=== PATIENT | female | born 1965 | race Caucasian/White ===

== ENCOUNTER 2016-04-09 10:13 | Emergency (ER) | payer OTHER ==
[~2016-04-09] VITALS: Ht 157.5 cm; Wt 78.0 kg
[2016-04-09 10:16] VITALS: Ht 157.5 cm; Wt 78.0 kg
--- NOTE | 2016-04-09 10:57 | ERD ---
ER Documentation Chief Complaint Date/Time DATE: 04/09/16 TIME: 10:54 Chief Complaint post nasal darinage, stuffy nose, eye irritation, on zyrtec already HPI This is a 51-year-old female that presents to the ER with multiple complaints. Patient states that yesterday she developed a runny nose and was sneezing a lot. Patient believed it was allergies and she tried Zyrtec. Zyrtec helped a little bit however this morning patient woke up with a dry cough and with bilateral yellow eye discharge. Her eyes were stuck together. She does complain of red eyes bilaterally. Patient denies any chest pain shortness of breath. Patient is additionally complaining of lower back pain. Last week patient was going downstairs when she slipped, however she caught herself. Patient states that she put a lot of weight on her left leg and the left side of her back to catch her balance and since then she has had left-sided lower back pain that radiates down her left leg. Patient denies any hip pain, any ankle pain. Pain is described as a strain and has been getting better with rest. Patient denies any numbness or tingling of her lower extremity. She denies any urinary or bowel incontinence. ROS 12 point review of systems was done, all negative except per HPI. Medications Home Meds Active Scripts Ibuprofen* (Motrin*) 600 Mg Tab, 600 MG PO Q6, #30 TAB Prov:JEANMARIE GALINDO 04/09/16 Dextromethorphan Hb-Promethazine Hcl (Promethazine DM Syrup) 473 Ml Syrup, 10 ML PO Q6H Y for COUGH, #4 OZ Prov:JEANMARIE GALINDO 04/09/16 Polymyxin B Sulfate-TMP* (Polymyxin B-TMP Eye Drops*) 10 Ml Drops, 1 DROP BOTH EYES Q3H for 7 Days, EA Prov:JEANMARIE GALINDO 04/09/16 Allergies Allergies: Coded Allergies: No Known Allergy (Unverified , 04/09/16) PMhx/Soc Hx Alcohol Use: No Hx Substance Use: No Hx Tobacco Use: No Physical Exam Vitals Vital Signs Date Time Temp Pulse Resp B/P Pulse Ox O2 Delivery O2 Flow Rate FiO2 04/09/16 10:16 98.1 85 18 140/70 99 Physical Exam GENERAL: The patient is well-developed, well-nourished, in no acute distress. NECK: Cervical spine is non tender with no step off. Supple, no nuchal rigidity HEENT: Atraumatic. Pupils equal, round and reactive to light. Extraocular muscles are grossly intact. Injected left conjunctiva. Discharge seen bilaterally. No surrounding erythema or edema of the eyes. Nonpainful extraocular movements bilateral tympanic membranes are clear with no evidence of erythema, effusion or dulling of the light reflex. Tonsilar erythema with no exudates or uvular deviation. Clear rhinorrhea. RESPIRATORY: Clear to auscultation bilaterally. There are no rales, wheezes or rhonchi. HEART: Regular rate and rhythm. No murmurs, clicks, rubs or gallops. EXTREMITIES: Patient is tender to palpation to the left paraspinal muscles near the lumbar spine. There is no vertebral point tenderness. Patient has full range of motion of her back. Negative straight leg test. No hip pain, knee pain. Worsening. +2 pulses. NEUROLOGIC: Alert and oriented. SKIN: There is no rash. The skin is warm and dry. Procedures/MDM This is a 51-year-old female that presents to the ER with multiple complaints in regards to patient's upper respiratory infection symptoms this is likely viral in etiology. Patient will be given Polytrim for possible bacterial conjunctivitis, as she does have yellow discharge and injection of her eyes. In regards to patient's back pain this is likely back strain. Patient is neurovascularly intact and is ambulating without any difficulty. Her x-rays were negative for any fracture dislocation. Patient has denied any hip pain or knee pain. She will be sent home with Phenergan and with ibuprofen. Patient needs to follow-up with her primary care doctor within 1-2 days I shared my medical decision making with the patient patient understands and agrees with plan. Departure Diagnosis: Primary Impression: Upper respiratory infection Additional Impression: Back strain Condition: Stable JEANMARIE GALINDO Apr 09, 2016 10:57
--- NOTE | 2016-04-09 11:43 | RADRPT ---
PROCEDURE: XR Lumbar Spine. CLINICAL INDICATION: Trauma due to a fall. Back pain. TECHNIQUE: Three views. AP, lateral and cone-down lateral view of the lumbar spine were obtained. COMPARISON: No prior studies are available for comparison. FINDINGS: There is normal stature and alignment of the vertebrae. There is no fracture. There is no lytic or blastic lesion. The disk height is normal. There are small osteophytes throughout. The paravertebral soft tissues are unremarkable. IMPRESSION: 1. Mild degenerative change. 2. Otherwise normal images of the lumbar spine. RPTAT: QQ .Rigoberto Miranda MD, MD Date Time Electronically viewed and signed by .Rigoberto Miranda MD, MD on 04/09/2016 11:42 .R/
[2016-04-09] MEDS ORDERED: POLY10DR19 BOTH EYES (11:52)
[2016-04-09] MEDS ORDERED: IBUP-1542 PO (11:53)
[2016-04-09] MEDS ORDERED: D-ME473S18 PO (11:53)
== END 2016-04-09 12:22 | disposition home or self-care (01) ==
LOC: FTE 10:13
DX: J06.9 Acute upper respiratory infection, unspecified (principal); S29.012A Strain of muscle and tendon of back wall of thorax, initial encounter; W18.40XA Slipping, tripping and stumbling without falling, unspecified, initial encounter; Y92.9 Unspecified place or not applicable
CPT/HCPCS: 72100; Z7502

== ENCOUNTER 2016-06-15 12:50 | Emergency (ER) | payer OTHER ==
[~2016-06-15] VITALS: Ht 157.5 cm; Wt 67.1 kg
[~2016-06-15 12:50] MED LIST: D-ME473S18 PO; IBUP-1542 PO; POLY10DR19 BOTH EYES
[2016-06-15 13:00] VITALS: Ht 157.5 cm; Wt 67.1 kg
[2016-06-15] MEDS ORDERED: AZIT250T94 PO (14:27)
[2016-06-15] MEDS ORDERED: PSEU120T11 PO (14:27)
[2016-06-15] MEDS ORDERED: CETI10CA PO (14:28)
[2016-06-15] MEDS ORDERED: FLUT9.9S NASAL (14:28)
--- NOTE | 2016-06-15 14:43 | ERD ---
ER Documentation Chief Complaint Date/Time DATE: 06/15/16 TIME: 14:[address] x 3 days HPI This is a 51-year-old female that presents to the ER with sore throat for the last 3 days. Patient states that sore throat feels as if she has tinnitus in her throat. She is also complaining of nasal congestion, runny nose and postnasal drip. Patient denies any fevers or chills. She does admit to a cough. Patient states that her sore there is getting significantly worse. There are no sick contacts at home. ROS 12 point review of systems was done, all negative except per HPI. Medications Home Meds Active Scripts Fluticasone Propionate (Flonase Allergy Relief) 9.9 Ml [place].susp, 1 SPRAY NASAL BID, #1 BOTTLE TO EACH NOSTRIL Prov:JOSIEMARCIAJEANMARIE C 06/15/16 Cetirizine Hcl* (Zyrtec*) 10 Mg Capsule, 10 MG PO DAILY, #10 TAB.CHEW Prov:JEANMARIE GALINDO 06/15/16 Pseudoephedrine Hcl (Sudafe 12-Hour) 120 Mg Tablet.er, 120 MG PO BID Y for CONGESTION for 30 Days, TAB.SA Prov:MARCIA GALINDODOROTHY aBll 06/15/16 Azithromycin* (Zithromax*) 250 Mg Tablet, 250 MG PO .ZPACK DIRECTED, #6 TAB TAKE 500 MG (2 TABS) THE FIRST DAY THEN 250 MG (1 TAB) DAYS 2-5 Prov:JOSIEJEANMARIE Ball 06/15/16 Ibuprofen* (Motrin*) 600 Mg Tab, 600 MG PO Q6, #30 TAB Prov:JEANMARIE GALINDO 04/09/16 Dextromethorphan Hb-Promethazine Hcl (Promethazine DM Syrup) 473 Ml Syrup, 10 ML PO Q6H Y for COUGH, #4 OZ Prov:JOSIEJEANMARIE Ball 04/09/16 Polymyxin B Sulfate-TMP* (Polymyxin B-TMP Eye Drops*) 10 Ml Drops, 1 DROP BOTH EYES Q3H for 7 Days, EA Prov:JOSIEMARCIAJEANMARIE C 04/09/16 Allergies Allergies: Coded Allergies: No Known Allergy (Unverified , 04/09/16) PMhx/Soc Hx Alcohol Use: No Hx Substance Use: No Hx Tobacco Use: No Physical Exam Vitals Vital Signs Date Time Temp Pulse Resp B/P Pulse Ox O2 Delivery O2 Flow Rate FiO2 06/15/16 13:00 98.1 78 20 123/77 99 Physical Exam GENERAL: The patient is well-developed, well-nourished, in no acute distress. NECK: Cervical spine is non tender with no step off. Supple, no nuchal rigidity HEENT: Atraumatic. Pupils equal, round and reactive to light. Extraocular muscles are grossly intact. Conjunctivae pink, no discharge. Bilateral tympanic membranes are clear with no evidence of erythema, effusion or dulling of the light reflex. Tonsilar erythema with no exudates or uvular deviation. Clear rhinorrhea. RESPIRATORY: Clear to auscultation bilaterally. There are no rales, wheezes or rhonchi. HEART: Regular rate and rhythm. No murmurs, clicks, rubs or gallops. EXTREMITIES: No clubbing or cyanosis. Full range of motion. Grossly neurovascularly intact. NEUROLOGIC: Alert and oriented. Cranial nerves II through XII are intact. SKIN: There is no rash. The skin is warm and dry. Procedures/MDM Differential diagnosis includes but is not limited to; Viral URI, allergic rhinitis, bronchitis, pertussis,pneumonia. Patient likely has an upper respiratory infection, because of patient's severity of symptoms she'll be treated with azithromycin. She'll also be treated for possible allergic rhinitis. Clinical suspicion for pneumonia is low as patient appears well, is not hypoxic or in any respiratory distress. Additionally, patients physical examination is benign. Plan was discussed with patient they understand and agree. Patient needs to follow up with PCP in 1-2 days or return to ER sooner if symptoms worsen. Departure Diagnosis: Primary Impression: Upper respiratory infection Condition: Stable Patient Instructions: Preventing Common Respiratory Infections Additional Instructions: Call your primary care doctor TOMORROW for an appointment during the next 1-2 days.See the doctor sooner or return here if your condition worsens before your appointment time. JEANMARIE GALINDO Jun 15, 2016 14:43
== END 2016-06-15 14:30 | disposition home or self-care (01) ==
LOC: E/R 12:50
DX: J06.9 Acute upper respiratory infection, unspecified (principal)
CPT/HCPCS: 99283

== ENCOUNTER 2016-09-20 12:21 | Emergency (ER) | payer OTHER ==
[~2016-09-20] VITALS: Wt 70.0 kg
[~2016-09-20 12:21] MED LIST changes: +AZIT250T94 PO; +CETI10CA PO; +FLUT9.9S NASAL; +PSEU120T11 PO
[2016-09-20] MEDS ORDERED: KETOROLAC 30 MG INJ IM STA (12:52)
--- NOTE | 2016-09-20 13:49 | RADRPT ---
PROCEDURE: XR Cervical Spine. CLINICAL INDICATION: Neck pain TECHNIQUE: 3 views of the cervical spine were performed. [facility] COMPARISON: None. FINDINGS: The vertebral body alignment, height and osseous mineralization are normal. There is preservation of the normal cervical lordosis. There is mild facet arthropathy in the lower cervical spine. The unc overtebral joints are unremarkable. The intervertebral disc spaces are well maintained. There are no abnormal calcifications. The prevertebral soft tissues are normal. No radiopaque foreign bodies are identified. IMPRESSION: 1. No acute fracture or traumatic malalignment. 2. Mild facet arthropathy in the lower cervical spine. RPTAT: HHO .Domenico Hurst MD, MD Date Time Electronically viewed and signed by .Domenico Hurst MD, on 09/20/2016 13:49 .O/
--- NOTE | 2016-09-20 14:15 | ERD ---
ER Documentation Chief Complaint Date/Time DATE: 09/20/16 TIME: 14:12 Chief Complaint RIGHT SHOULDER/NECK PAIN X12 DAYS, NO INJURY HPI This a 51 .-year-old female who presents the emergency department today complaining of neck pain for the past 2 weeks. States that the pain is going down into both of her shoulders. States she took ibuprofen last night. Denies any trauma. Denies any fevers or chills. ROS All systems reviewed and are negative except as per history of present illness. Medications Home Meds Active Scripts Acetaminophen* (Tylophen*) 500 Mg Capsule, 1 CAP PO Q6H Y for PAIN AND OR ELEVATED TEMP, #30 CAP Prov:CONSUELO PARTIDA PA-C 09/20/16 Tramadol HCl (Tramadol HCl) 50 Mg Tablet, 50 MG PO Q4 Y for PAIN, #20 TAB Prov:CONSUELO PARTIDA PA-C 09/20/16 Naproxen* (Naprosyn*) 500 Mg Tablet, 500 MG PO BID Y for PAIN AND/OR INFLAMMATION, #30 TAB Prov:CONSUELO PARTIDA PA-C 09/20/16 Fluticasone Propionate (Flonase Allergy Relief) 9.9 Ml [place].susp, 1 SPRAY NASAL BID, #1 BOTTLE TO EACH NOSTRIL Prov:JEANMARIE GALINDO 06/15/16 Cetirizine Hcl* (Zyrtec*) 10 Mg Capsule, 10 MG PO DAILY, #10 TAB.CHEW Prov:JEANMARIE GALINDO 06/15/16 Pseudoephedrine Hcl (Sudafe 12-Hour) 120 Mg Tablet.er, 120 MG PO BID Y for CONGESTION for 30 Days, TAB.SA Prov:JEANMARIE GALINDO 06/15/16 Azithromycin* (Zithromax*) 250 Mg Tablet, 250 MG PO .ZPACK DIRECTED, #6 TAB TAKE 500 MG (2 TABS) THE FIRST DAY THEN 250 MG (1 TAB) DAYS 2-5 Prov:JEANMARIE GALINDO 06/15/16 Ibuprofen* (Motrin*) 600 Mg Tab, 600 MG PO Q6, #30 TAB Prov:JEANMARIE GALINDO 04/09/16 Dextromethorphan Hb-Promethazine Hcl (Promethazine DM Syrup) 473 Ml Syrup, 10 ML PO Q6H Y for COUGH, #4 OZ Prov:JEANMARIE GALINDO 04/09/16 Polymyxin B Sulfate-TMP* (Polymyxin B-TMP Eye Drops*) 10 Ml Drops, 1 DROP BOTH EYES Q3H for 7 Days, EA Prov:JEANMARIE GALINDO 04/09/16 Allergies Allergies: Coded Allergies: No Known Allergy (Unverified , 04/09/16) PMhx/Soc Hx Alcohol Use: No Hx Substance Use: No Hx Tobacco Use: No Physical Exam Vitals Vital Signs Date Time Temp Pulse Resp B/P Pulse Ox O2 Delivery O2 Flow Rate FiO2 09/20/16 12:27 98.0 92 17 145/68 98 Physical Exam Const: No acute distress Head: Atraumatic Eyes: Normal Conjunctiva ENT: Normal External Ears, Nose and Mouth. Neck: Full range of motion..~ No meningismus. Midline tenderness and bilateral paraspinal tenderness. Resp: Clear to auscultation bilaterally Cardio: Regular rate and rhythm, no murmurs Abd: Soft, non tender, non distended. Normal bowel sounds Skin: No petechiae or rashes Back: No midline or flank tenderness Ext: No cyanosis, or edema. Bilateral arms with full active range of motion. Strength 5 out of 5. Pulses 2+. Distal neurovascularly intact Neur: Awake and alert Psych: Normal Mood and Affect Results 24 hrs Current Medications Medications (Trade) Dose Ordered Sig/Ann Route PRN Reason Start Time Stop Time Status Last Admin Dose Admin Ketorolac Tromethamine (Toradol) 30 mg ONCE STAT IM 09/20/16 12:52 09/20/16 12:54 DC 09/20/16 13:39 DIAGNOSTIC IMAGING REPORT Patient: JOURDAN MENDEZ : 1965 Age: 51 Sex: F MR #: [id number] DOS: 09/20/16 0000 Ordering MD: CONSUELO PARTIDA PA-C Location: [facility] Room/Bed: PROCEDURE: XR Cervical Spine. CLINICAL INDICATION: Neck pain TECHNIQUE: 3 views of the cervical spine were performed. The images were reviewed on a PACS workstation. COMPARISON: None. FINDINGS: The vertebral body alignment, height and osseous mineralization are normal. There is preservation of the normal cervical lordosis. There is mild facet arthropathy in the lower cervical spine. The uncovertebral joints are unremarkable. The intervertebral disc spaces are well maintained. There are no abnormal calcifications. The prevertebral soft tissues are normal. No radiopaque foreign bodies are identified. IMPRESSION: 1. No acute fracture or traumatic malalignment. 2. Mild facet arthropathy in the lower cervical spine. RPTAT: HHO .Domenico Hurst MD, Date Time Electronically viewed and signed by .Domenico Hurst MD, on 09/20/2016 13:49 .O/ CC: CONSUELO PARTIDA PA-C Procedures/[facility] This 51-year-old female who presents to the emergency department today complaining of neck pain that goes down into both of her shoulders. Patient has not had any trauma however she is complaining of radicular symptoms and therefore I did obtain cervical spine films Per the radiology report images of the cervical spine show no acute fracture or traumatic malalignment. There is mild facet arthropathy and lower cervical spine. Intervertebral discs are well maintained. Patient's arthropathy may be be the source of the pain is appears that her pain is somewhat chronic. Low suspicion for meningitis, sepsis, acute fracture dislocation. Patient was given Toradol here in the emergency department. I will give her prescription for short course of tramadol for home as well as Naprosyn and Tylenol At this time the patient is stable for discharge and outpatient management. Patient should follow up with their PCP in the next 1-2 days. They may return to the emergency department sooner for any persistent or worsening of symptoms. Patient understood and agreed with the plan. Departure Diagnosis: Primary Impression: Neck pain Condition: Fair CONSUELO PARTIDA PA-C Sep 20, 2016 14:15
[2016-09-20] MEDS ORDERED: NAPR-260 PO (14:16)
[2016-09-20] MEDS ORDERED: ACET500C5 PO (14:17)
[2016-09-20] MEDS ORDERED: TRAM50TA2 PO (14:17)
== END 2016-09-20 14:43 | disposition home or self-care (01) ==
LOC: FTE 12:21
DX: M54.2 Cervicalgia (principal)
CPT/HCPCS: 72040; 96372; J1885; Z7502

== ENCOUNTER 2016-09-21 06:08 | Emergency (ER) | payer OTHER ==
[~2016-09-21] VITALS: Ht 162.6 cm; Wt 70.0 kg
[~2016-09-21 06:08] MED LIST changes: +ACET500C5 PO; +NAPR-260 PO; +TRAM50TA2 PO
[2016-09-21 06:12] VITALS: Ht 162.6 cm; Wt 70.0 kg
--- NOTE | 2016-09-21 06:49 | ERD ---
ER Documentation Chief Complaint Date/Time DATE: 09/21/16 Chief Complaint Neck pain, right arm pain HPI The patient is a 51-[facility] of neck pain radiating down the right lower extremity. The patient reports that approximately 2 weeks ago she developed neck pain, worse on the right side. Over the past 2 days, she has noted increased radiation of pain down to the upper extremities, moreso on the right side. The pain extends just distal to the right elbow, and associated with mild paresthesias. She denies any numbness or weakness of the extremity. Denies restricted range of motion. Denies fevers, sweats, chills, nausea or vomiting. Denies chest pain, palpitations or shortness of breath. Denies any difficulty with ambulation, lower extremity or trunk symptoms, bowel or bladder disturbances, urinary retention. Denies any unexplained weight loss or hemoptysis. Denies any history of cancer, immunocompromise illness, or IV drug use. Denies any recent falls, injury or trauma preceding the symptoms. She rates her current pain as 10 out of 10, but notes that she has not yet taken any medication today for pain relief. The patient states that due to the symptoms she was initially seen in the emergency department yesterday, which time she received an x-ray the cervical spine which revealed mild facet arthropathy in the lower cervical spine , but otherwise no acute fracture or traumatic malalignment. The patient was discharged home with prescriptions for tramadol, naproxen and Tylenol, though she notes that she has not taken any of these medications today. She did take a dose of tramadol last night, with moderate improvement in symptoms. She has not yet seen her primary medical provider, but has an appointment to be seen tomorrow. Denies any change in symptoms from her presentation yesterday. No other complaints today. ROS All systems reviewed and are negative except as per history of present illness. Medications Home Meds Active Scripts Acetaminophen* (Tylophen*) 500 Mg Capsule, 1 CAP PO Q6H Y for PAIN AND OR ELEVATED TEMP, #30 CAP Prov:CONSUELO PARTIDA PA-C 09/20/16 Tramadol HCl (Tramadol HCl) 50 Mg Tablet, 50 MG PO Q4 Y for PAIN, #20 TAB Prov:CONSUELO PARTIDA PA-C 09/20/16 Naproxen* (Naprosyn*) 500 Mg Tablet, 500 MG PO BID Y for PAIN AND/OR INFLAMMATION, #30 TAB Prov:CONSUELO PARTIDA PA-C 09/20/16 Fluticasone Propionate (Flonase Allergy Relief) 9.9 Ml [place].susp, 1 SPRAY NASAL BID, #1 BOTTLE TO EACH NOSTRIL Prov:JEANMARIE GALINDO 06/15/16 Cetirizine Hcl* (Zyrtec*) 10 Mg Capsule, 10 MG PO DAILY, #10 TAB.CHEW Prov:JEANMARIE GALINDO 06/15/16 Pseudoephedrine Hcl (Sudafe 12-Hour) 120 Mg Tablet.er, 120 MG PO BID Y for CONGESTION for 30 Days, TAB.SA Prov:JEANMARIE GALINDO 06/15/16 Azithromycin* (Zithromax*) 250 Mg Tablet, 250 MG PO .ZPACK DIRECTED, #6 TAB TAKE 500 MG (2 TABS) THE FIRST DAY THEN 250 MG (1 TAB) DAYS 2-5 Prov:JEANMARIE GALINDO Lizzy 06/15/16 Ibuprofen* (Motrin*) 600 Mg Tab, 600 MG PO Q6, #30 TAB Prov:JEANMARIE GALINDO 04/09/16 Dextromethorphan Hb-Promethazine Hcl (Promethazine DM Syrup) 473 Ml Syrup, 10 ML PO Q6H Y for COUGH, #4 OZ Prov:JEANMARIE GALINDO 04/09/16 Polymyxin B Sulfate-TMP* (Polymyxin B-TMP Eye Drops*) 10 Ml Drops, 1 DROP BOTH EYES Q3H for 7 Days, EA Prov:JEANMARIE GALINDO Lizzy 04/09/16 Allergies Allergies: Coded Allergies: No Known Allergy (Unverified , 09/21/16) PMhx/Soc Hx Alcohol Use: No Hx Substance Use: No Hx Tobacco Use: No Smoking Status: Never smoker Physical Exam Vitals Vital Signs Date Time Temp Pulse Resp B/P Pulse Ox O2 Delivery O2 Flow Rate FiO2 09/21/16 06:12 97.8 80 20 122/85 97 Physical Exam GENERAL: Well-developed, well-nourished, female, in no acute distress. Nontoxic. HEENT: Head is normocephalic, atraumatic. No scleral pallor or icterus. Pupils equal, round and reactive to light. Extraocular movements intact. Conjunctiva pink. Moist mucous membranes. NECK: Supple. Bilateral paraspinal muscle tenderness, greater on the right side with mild palpable spasm noted, extending towards the right trapezius muscle. Positive Spurling maneuver on the right side. No crepitus. No erythema. No swelling. No posterior midline cervical tenderness. Normal range of motion. No masses. No nuchal rigidity. No meningismus. Trachea is midline. RESPIRATORY: Lungs are clear to auscultation bilaterally. Equal breath sounds. Normal expiratory effort. CARDIOVASCULAR: Regular rate and rhythm. S1 and S2 normal. GASTROINTESTINAL: Soft. Nontender. Nondistended. BACK: No midline tenderness. EXTREMITIES: No clubbing, cyanosis, or edema. Normal skin perfusion. Moving all extremities. Muscle tone is normal. No focal swelling or erythema. Negative drop arm test. Negative Neer sign. Negative [place] test. No crepitus. Distal pulses are palpable, 2+ bilaterally. Capillary refill is less than 2 seconds. Compartments are soft. NEUROLOGIC: The patient is alert, awake, and oriented x 3. No focal neurologic deficits. Motor and sensation grossly intact. INTEGUMENT: Skin is intact. Warm and dry. No rashes, no petechiae present. Normal turgor. PSYCHIATRIC: Cooperative. Appropriate. Results 24 hrs Current Medications Medications (Trade) Dose Ordered Sig/Ann Route PRN Reason Start Time Stop Time Status Last Admin Dose Admin Acetaminophen/ Hydrocodone Bitart ([place] (5/325)) 1 tab ONCE ONCE PO 09/21/16 07:00 09/21/16 07:01 09/21/16 06:58 Procedures/MDM This is a 51-year-old female presenting to the emergency department with a complaint of neck pain extending into the right upper extremity with associated radicular symptoms of intermittent paresthesias. The patient had mild tenderness to the right lateral neck, with a positive Spurling maneuver on physical examination. No evidence of weakness of sensory disturbances. She had a normal neurological examination. No midline cervical spine tenderness. No chest pain or shortness of breath. No fevers, history of IVDU or cancer. The differential diagnosis includes, but is not limited to, cervical strain, DJD, neck injury, torticollis, vertebral artery dissection, entrapped nerve, brachial plexus lesion, cervical spondylosis, disc herniation, carotid artery dissection, cervical spine fracture/dislocation, myelopathy, necrotizing myositis/fasciitis. X-ray of the cervical spine performed yesterday revealed mild facet arthropathy in the lower cervical spine, but otherwise no acute fracture or traumatic malalignment. After rest and administration of [place], the patient reports no new complaints. Upon my review and interpretation of the patient's presentation and overall ER course, I believe that the patient's symptoms are most consistent with neck pain with radicular symptoms likely secondary to cervical radiculopathy. At this time, the patient is in stable condition and therefore can be discharged home with strict return precautions for signs of deteriorating condition or worsening condition. She is advised to continue taking the previously prescribed medications for symptomatic relief, and to follow up with her primary care provider for reevaluation and further management within the next 1 to 2 days or to return to the ER sooner for any worsening symptoms. She is advised to request an MRI of her PMD if her symptoms do not improve. I shared my medical decision making with the patient at length and in great detail, and the patient verbally understands and agrees with the plan for further observation and care as an outpatient. At the time of discharge, all questions were answered. Departure Diagnosis: Primary Impression: Neck pain Additional Impression: Cervical radiculopathy Condition: Stable Patient Instructions: Neck Pain, No Trauma, Radiculopathy, Cervical Additional Instructions: Llame al doctor MAANA y shannon migel JEAN-PAUL PARA DENTRO DE 1-2 MARCUS.Dgale a la secretaria que nosotros le instruimos hacer esta jean-paul.Avise o llame si irizarry condicin se empeora antes de la jean-paul. Regresa aqui si peor o no mejor. TAVO BRAGG PA-C Sep 21, 2016 06:49
[2016-09-21] MEDS ORDERED: HYDROCODONE/APAP (5/325) TAB PO ONE (07:00)
== END 2016-09-21 07:24 | disposition home or self-care (01) ==
LOC: FTE 06:08
DX: M54.2 Cervicalgia (principal); M54.12 Radiculopathy, cervical region
CPT/HCPCS: Z7502; Z7610; 99283

== ENCOUNTER 2017-03-17 10:02 | Emergency (ER) | payer OTHER ==
[~2017-03-17] VITALS: Wt 72.1 kg
[2017-03-17] MEDS ORDERED: IBUP-1542 PO (10:27)
[2017-03-17] MEDS ORDERED: PENI500T PO (10:27)
[2017-03-17] MEDS ORDERED: IBUPROFEN 600 MG TAB PO ONE (10:30)
--- NOTE | 2017-03-17 10:35 | ERD ---
ER Documentation Chief Complaint Chief Complaint COUGH, THROAT PAIN, FEVER, ONSET 3 DAYS HPI 51 year old female comes in with sore throat, fever, painful swallowing for the past 3 days. She has no difficulty handling her secretions, drooling or voice changes. She denies cough, rhinorrhea. Patient denies chest pain or shortness breath. ROS All systems reviewed and are negative except as per history of present illness. Medications Home Meds Active Scripts Penicillin V Potassium* (Penicillin V K*) 500 Mg Tab, 500 MG PO TID for 10 Days , TAB Prov:XOCHITL FERRIS PA-C 03/17/17 Ibuprofen* (Motrin*) 600 Mg Tab, 600 MG PO Q6, #30 TAB Prov:XOCHITL FERRIS PA-C 03/17/17 Acetaminophen* (Tylophen*) 500 Mg Capsule, 1 CAP PO Q6H Y for PAIN AND OR ELEVATED TEMP, #30 CAP Prov:CONSUELO PARTIDA PA-C 09/20/16 Tramadol HCl (Tramadol HCl) 50 Mg Tablet, 50 MG PO Q4 Y for PAIN, #20 TAB Prov:CONSUELO PARTIDA PA-C 09/20/16 Naproxen* (Naprosyn*) 500 Mg Tablet, 500 MG PO BID Y for PAIN AND/OR INFLAMMATION, #30 TAB Prov:CONSUELO PARTIDA PA-C 09/20/16 Fluticasone Propionate (Flonase Allergy Relief) 9.9 Ml [place].susp, 1 SPRAY NASAL BID, #1 BOTTLE TO EACH NOSTRIL Prov:JEANMARIE GALINDO 06/15/16 Cetirizine Hcl* (Zyrtec*) 10 Mg Capsule, 10 MG PO DAILY, #10 TAB.CHEW Prov:JEANMARIE GALINDO 06/15/16 Pseudoephedrine Hcl (Sudafe 12-Hour) 120 Mg Tablet.er, 120 MG PO BID Y for CONGESTION for 30 Days, TAB.SA Prov:JEANMARIE GALINDO 06/15/16 Azithromycin* (Zithromax*) 250 Mg Tablet, 250 MG PO .ZPACK DIRECTED, #6 TAB TAKE 500 MG (2 TABS) THE FIRST DAY THEN 250 MG (1 TAB) DAYS 2-5 Prov:JEANMARIE GALINDO 06/15/16 Ibuprofen* (Motrin*) 600 Mg Tab, 600 MG PO Q6, #30 TAB Prov:JEANMARIE GALINDO 04/09/16 Dextromethorphan Hb-Promethazine Hcl (Promethazine DM Syrup) 473 Ml Syrup, 10 ML PO Q6H Y for COUGH, #4 OZ Prov:JEANMARIE GALINDO 04/09/16 Polymyxin B Sulfate-TMP* (Polymyxin B-TMP Eye Drops*) 10 Ml Drops, 1 DROP BOTH EYES Q3H for 7 Days, EA Prov:JEANMARIE GALINDO 04/09/16 Allergies Allergies: Coded Allergies: No Known Allergy (Unverified , 09/21/16) PMhx/Soc Hx Alcohol Use: No Hx Substance Use: No Hx Tobacco Use: No Physical Exam Vitals Vital Signs Date Time Temp Pulse Resp B/P Pulse Ox O2 Delivery O2 Flow Rate FiO2 03/17/17 10:06 99.9 108 17 140/71 99 Physical Exam General: Well-developed, well-nourished. The patient appears in no acute distress. HEENT: Head is normocephalic, atraumatic. No scleral icterus. Patient has bilateral tonsillar exudate, uvula midline, no masses. Neck: Supple. Nontender. Positive cervical lymphadenopathy present. Lungs: Clear to auscultation. Normal air movement. Heart: Regular rate and rhythm. S1 and S2 are normal. No murmurs, gallops, or rubs. Abdomen: Nondistended. Extremities: No clubbing or cyanosis. Moving extremities x 4. No weakness. Neurologic: Alert and oriented 3. No focal deficits. Normal speech and gait. Skin: Normal turgor. No rash or lesions. Results 24 hrs Current Medications Medications (Trade) Dose Ordered Sig/Ann Route PRN Reason Start Time Stop Time Status Last Admin Dose Admin Ibuprofen (Motrin) 600 mg ONCE ONCE PO 03/17/17 10:30 03/17/17 10:31 DC 03/17/17 10:32 Procedures/MDM 51-year-old female comes in with acute pharyngitis, the patient has no history of cough, she has had a fever, positive cervical lymphadenopathy and exudate, meeting for us 4 center criteria will be treated for strep pharyngitis presumed. She does not have any signs of an abscess, I doubt deep space infection including retropharyngeal abscess. She is well-appearing, with normal vital signs and stable for outpatient management. Patient's blood pressure was elevated (>120/80) but appears stable without evidence of hypertension emergency or urgency. The patient was counseled about the risks of hypertension and urged to pursue outpatient monitoring and therapy within a week with their primary care physician. Departure Diagnosis: Primary Impression: Acute pharyngitis Condition: Good Patient Instructions: Pharyngitis, Strep (Presumed) XOCHITL FERRIS PA-C Mar 17, 2017 10:35
== END 2017-03-17 10:45 | disposition home or self-care (01) ==
LOC: FTE 10:02
DX: J02.9 Acute pharyngitis, unspecified (principal)
CPT/HCPCS: Z7502; Z7610; 99283

== ENCOUNTER 2017-03-30 07:32 | Day surgery (SDC) | END 2017-03-30 14:27 | disposition home or self-care (01) ==

== ENCOUNTER 2017-05-04 06:39 | Day surgery (SDC) | END 2017-05-04 16:19 | disposition home or self-care (01) ==

== ENCOUNTER 2017-05-31 09:07 | Emergency (ER) | END 2017-05-31 10:12 | disposition home or self-care (01) ==